=== PATIENT | male | born 1990 | race Caucasian/White ===

== ENCOUNTER 2023-07-11 11:30 | Outpatient (AMB) | payer OTHER, SELFPAY ==
[2023-07-11 11:33] VITALS: BP 120/80; PULSE 75; TEMP 36.3; BMI 28.0
--- NOTE | 2023-07-11 11:33 | MHC.OFFWIV ---
Intake Vital Signs 07/11/23 11:33 Height 5 ft 5 in Weight 168 lb BMI 28.0 BP 120/80 Blood Pressure Location Lt brachial Position Sitting Pulse 75 Pulse Source Palpation Temp 97.3 F Temp Source Temporal Artery Scan Intake Visit Reasons: EP, SOB, loss of voice Intake Note: Pt is here c/o SOB and loss of voice for the past two months. Allergies lorazepam [From [facility]] Adverse Reaction (Intermediate, Unverified 08/06/20 17:50) AGITATION Medication List - Last Reconciled 07/11/23 by Seth Sotelo MD No Known Home Meds HPI EP, SOB, loss of voice HPI Details 33-year-old male presents to the office for a sick visit. For the past 2 months patient has been having intermittent sore throat and hoarseness of the voice. Occasional difficulty swallowing. Symptoms resolve and then recur. No fevers or chills. No nausea or vomiting. On my questioning, patient does have high-risk sexual behavior. He has sex with men and has had more than 1 partner. He last tested for HIV a year ago. He was negative. Physical Exam Vital Signs: Last Vital Signs Temp 97.3 F 07/11/23 11:33 Pulse 75 07/11/23 11:33 BP 120/80 07/11/23 11:33 BMI result Body Mass Index 28.0 Const General: cooperative and healthy appearing Nutritional Appearance: well nourished Orientation/consciousness: patient oriented x3 Limitations: no limitations HEENT Other: Oral cavity: Enlarged tonsils. Head: Yes normal to inspection Eyes General: appearance normal, both eyes and all related structures Neck Neck: Yes normal visual inspection Chest Chest palpation & inspection: normal palpation of entire chest wall Resp Effort & Inspection: normal respiratory effort Neuro General: patient oriented x3 Assessment & Plan Assessment & Plan (1) Acute upper respiratory infection: Code(s): J06.9 - Acute upper respiratory infection, unspecified Plan: Azithromycin called in. Saltwater gargling. Patient declined HIV testing. Coding Level of Care Code Est Pt Level 3 (61199) Diagnoses Acute upper respiratory infection J06.9
== END 2023-07-11 12:09 | disposition home or self-care (01) ==
PROVIDERS: Visit Provider Internal Medicine
DX: J06.9 Acute upper respiratory infection, unspecified (principal)
CPT/HCPCS: 99203; 99213